=== PATIENT | female | born 1985 | race Caucasian/White ===

== ENCOUNTER 2017-07-10 19:58 | Emergency (ER) | payer OTHER, MEDICAID ==
[~2017-07-10] VITALS: Ht 160 cm; Wt 60.0 kg
[~2017-07-10 19:58] MED LIST: BENZ100 PO; FLON0.053; ZITH250T PO
[2017-07-10 20:00] VITALS: BP 144/83; PULSE 83; RESP 16; TEMP 98.1; O2SAT 99
--- NOTE | 2017-07-10 20:59 | PD ---
HPI Chief Complaint: Chest Pain Time Seen by Provider: 20:55 Travel History International Travel<30 days: No Contact w/Intl Traveler<30days: No Traveled to known affect area: No History of Present Illness HPI 32-year-old female came to the emergency room with history of on and off chest pain that has been going on for years but really started to bother her for the past 3 weeks. Patient says her usual pain is on the right side of the chest but for past 3 weeks it has more to the center and left. No aggravating or relieving factors identified. No radiation of the pain. No associated shortness of breath, syncopal episode, dizziness or diaphoresis. Patient is not a smoker and no family history of heart attack. Vital signs were stable. Patient is also complaining of right lower quadrant pain for which she took Monistat [id number] this morning. No nausea or vomiting. PFSH Past Medical History Narrative Medical List of her past medical, surgical, social and family histories reviewed from the nursing note. Influenza Vaccination: No ?: Not LMP: 06/15/17 Tubal Ligation: Yes Past Surgical History Gynecologic Surgery: Yes (TUBAL) Social History Alcohol Use: Yes ("[employer]") Tobacco Use: No Substance Use: No Allergies-Medications (Allergen,Severity, Reaction): Coded Allergies: No Known Allergies (Verified Adverse Reaction, Unknown, 07/10/17) Comments No known drug allergies. Reported Meds & Prescriptions Reported Meds & Active Scripts Active Macrobid (Nitrofurantoin Monoh/Nitrofur Macro) 100 Mg Cap 100 Mg PO BID 7 Days Zithromax Z-Sj (Azithromycin) 250 Mg Tab 250 Mg PO DIRECTED 5 Days 500 MG (2 TABLETS) PO ON DAY 1, THEN 250 MG (1 TABLET) PO ON DAYS 2 TO 5. Tessalon Perles (Benzonatate) 100 Mg Cap 100 Mg PO Q8 PRN Flonase (Fluticasone Propionate) 0.05 % Naspr 2 Spr NA DAILY PRN 2 SPRAYS EACH NOSTRIL Narrative Medication List of her home medications reviewed from the nursing note Review of Systems Except as stated in HPI: all other systems reviewed are Neg Cardiovascular: Positive: Chest Pain or Discomfort Gastrointestinal: Positive: Abdominal Pain Physical Exam Narrative GENERAL: Awake, alert, anxious, no obvious distress SKIN: Focused skin assessment warm/dry. HEAD: Atraumatic. Normocephalic. EYES: Pupils equal and round. No scleral icterus. No injection or drainage. ENT: No nasal bleeding or discharge. Mucous membranes pink and moist. NECK: Trachea midline. No JVD. CARDIOVASCULAR: Regular rate and rhythm. No murmur appreciated. RESPIRATORY: No accessory muscle use. Clear to auscultation. Breath sounds equal bilaterally. GASTROINTESTINAL: Abdomen soft, non-tender, nondistended. Hepatic and splenic margins not palpable. MUSCULOSKELETAL: No obvious deformities. No clubbing. No cyanosis. No edema. NEUROLOGICAL: Awake and alert. No obvious cranial nerve deficits. Motor grossly within normal limits. Normal speech. PSYCHIATRIC: Appropriate mood and affect; insight and judgment normal. Data Data Last Documented VS Vital Signs Date Time Temp Pulse Resp B/P (MAP) Pulse Ox O2 Delivery O2 Flow Rate FiO2 07/10/17 22:55 07/10/17 22:54 68 14 100 07/10/17 21:41 Room Air 07/10/17 20:00 98.1 Orders Orders Electrocardiogram (07/10/17 21:03) Basic Metabolic Panel (Bmp) (07/10/17 21:03) Ckmb (Isoenzyme) Profile (07/10/17 21:03) Complete Blood Count With Diff (07/10/17 21:03) D-Dimer (07/10/17 21:03) Magnesium (Mg) (07/10/17 21:03) Prothrombin Time / Inr (Pt) (07/10/17 21:03) Troponin I (07/10/17 21:03) Chest, Single Ap (07/10/17 21:03) Ecg Monitoring (07/10/17 21:03) Bilateral Bp Monitoring (07/10/17 21:03) Iv Access Insert/Monitor (07/10/17 21:03) Oximetry (07/10/17 21:03) Oxygen Administration (07/10/17 21:03) Sodium Chloride 0.9% Flush (Ns Flush) (07/10/17 21:15) Urinalysis - C+S If Indicated (07/10/17 21:03) Ed Urine Pregnancytest Poc (07/10/17 21:03) Urine Culture (07/10/17 21:16) Nitrofurantoin Monohyd Macrocr (Macrobid (07/10/17 22:00) CKMB (07/10/17 21:16) CKMB% (07/10/17 21:16) Ed Discharge Order (07/10/17 22:34) Labs Laboratory Tests Test 07/10/17 21:16 White Blood Count 5.9 TH/MM3 Red Blood Count 4.26 MIL/MM3 Hemoglobin 13.3 GM/DL Hematocrit 37.6 % Mean Corpuscular Volume 88.3 FL Mean Corpuscular Hemoglobin 31.2 PG Mean Corpuscular Hemoglobin Concent 35.3 % Red Cell Distribution Width 12.9 % Platelet Count 200 TH/MM3 Mean Platelet Volume 8.0 FL Neutrophils (%) (Auto) 43.7 % Lymphocytes (%) (Auto) 46.2 % Monocytes (%) (Auto) 8.5 % Eosinophils (%) (Auto) 1.0 % Basophils (%) (Auto) 0.6 % Neutrophils # (Auto) 2.6 TH/MM3 Lymphocytes # (Auto) 2.7 TH/MM3 Monocytes # (Auto) 0.5 TH/MM3 Eosinophils # (Auto) 0.1 TH/MM3 Basophils # (Auto) 0.0 TH/MM3 CBC Comment DIFF FINAL Differential Comment Prothrombin Time 10.1 SEC Prothromb Time International Ratio 1.0 RATIO D-Dimer Quantitative (PE/DVT) 0.35 MG/L FEU Urine Color YELLOW Urine Turbidity HAZY Urine pH 7.0 Urine Specific [place] 1.012 Urine Protein NEG mg/dL Urine Glucose (UA) NEG mg/dL Urine Ketones NEG mg/dL Urine Occult Blood NEG Urine Nitrite POS Urine Bilirubin NEG Urine Urobilinogen LESS THAN 2.0 MG/DL Urine Leukocyte Esterase MOD Urine RBC 3 /hpf Urine WBC 11 /hpf Urine Squamous Epithelial Cells 3 /hpf Urine Bacteria MANY /hpf Microscopic Urinalysis Comment CULTURE INDICATED Blood Urea Nitrogen 9 MG/DL Creatinine 1.10 MG/DL Random Glucose 94 MG/DL Calcium Level 9.3 MG/DL Magnesium Level 2.1 MG/DL Sodium Level 139 MEQ/L Potassium Level 3.6 MEQ/L Chloride Level 105 MEQ/L Carbon Dioxide Level 28.7 MEQ/L Anion Gap 5 MEQ/L Estimat Glomerular Filtration Rate 58 ML/MIN Total Creatine Kinase 101 U/L Creatine Kinase MB LESS THAN 0.5 NG/ML Troponin I LESS THAN 0.02 NG/ML MDM Medical Decision Making Medical Screen Exam Complete: Yes Emergency Medical Condition: Yes Medical Record Reviewed: Yes Interpretation(s) Twelve-lead EKG was reviewed by me. Normal sinus rhythm, normal axis, right bundle branch block. Heart rate of 87 bpm per Differential Diagnosis ACS, non-STEMI, PE, atypical chest pain, UTI Narrative Course 10:05 PM awaiting for troponin and d-dimer. Rest of the blood test result is within normal limits. Chest x-ray is negative. UA is suggestive of UTI. I have given her a dose of Macrobid. If the rest of the blood test was also negative patient will be discharged home. Procedures EKG Prior to Arrival: No Diagnosis Primary Impression: Atypical chest pain Additional Impression: UTI (urinary tract infection) Qualified Codes: N39.0 - Urinary tract infection, site not specified Referrals: Primary Care Physician Additional Instructions: Take the medication as per the prescription direction. You can take over-the- counter Tylenol/Motrin/ibuprofen/Advil for the pain as needed. Return to ER if condition worsens or any other new concerns. Otherwise follow-up with your primary care. Med/Other Pt SpecificInfo: Prescription(s) given Scripts Nitrofurantoin Monohydrate Macrocrystals (Macrobid) 100 Mg Cap 100 MG PO BID for Infection for 7 Days, #14 CAP 0 Refills Prov: Serena Mathews MD 07/10/17 Disposition: 01 DISCHARGE HOME Condition: Stable Serena Mathews MD Jul 10, 2017 20:59
[2017-07-10] MEDS ORDERED: SODIUM CHLORIDE 0.9% FLUSH 10 ML FLUSH IVF PRN (21:15)
[2017-07-10 21:39] LABS: AUTOMATED NEUTROPHIL # 2.6 TH/MM3 (1.8-7.7); BASOPHIL % 0.6 % (0.0-2.0); EOSINOPHIL # 0.1 TH/MM3 (0-0.4); HEMATOCRIT 37.6 % (35.0-46.0); HEMOGLOBIN 13.3 GM/DL (11.6-15.3); LYMPH % 46.2 % (9.0-44.0); LYMPHOCYTE # 2.7 TH/MM3 (1.0-4.8); MEAN CELL VOLUME 88.3 FL (80.0-100.0); MEAN CORPUSCULAR HEMOGLOBIN 31.2 PG (27.0-34.0); MEAN CORPUSCULAR HGB CONC 35.3 % (32.0-36.0); MONO % 8.5 % (0.0-8.0); MONOCYTE # 0.5 TH/MM3 (0-0.9); NEUT % 43.7 % (16.0-70.0); PLATELET COUNT 200 TH/MM3 (150-450); RED BLOOD COUNT 4.26 MIL/MM3 (4.00-5.30); RED CELL DISTRIBUTION WIDTH 12.9 % (11.6-17.2); WHITE BLOOD COUNT 5.9 TH/MM3 (4.0-11.0)
[2017-07-10 21:41] VITALS: BP 119/75; PULSE 75; RESP 15; O2SAT 100
[2017-07-10 21:42] LABS: BACTERIA, URINE MANY /hpf; BILIRUBIN, URINE NEG (NEG); BLOOD, URINE NEG (NEG); GLUCOSE,URINE NEG (NEG); KETONE, URINE NEG (NEG); NITRITE,URINE POS (NEG); SQUAMOUS EPITHELIAL CELL URINE 3 /hpf (0-5); URINE COLOR YELLOW (YELLW/STRAW); URINE LEUKOCYTE ESTERASE MOD (NEG)
[2017-07-10 21:53] LABS: BICARBONATE 28.7 MEQ/L (21.0-32.0); BLOOD UREA NITROGEN 9 MG/DL (7-18); CALCIUM 9.3 MG/DL (8.5-10.1); CHLORIDE 105 MEQ/L (98-107); GLOMERULAR FILTRATION RATE 58 ML/MIN (>89); GLUCOSE,RANDOM 94 MG/DL (74-106); MAGNESIUM 2.1 MG/DL (1.5-2.5); SODIUM (NA) 139 MEQ/L (136-145)
--- NOTE | 2017-07-10 21:56 | RADRPT ---
EXAM DATE/TIME: 07/10/2017 21:28 [facility] COMPARISON: No previous studies available for comparison. INDICATIONS : Patient complains of chest pains. Patient states they have had chest pains since a young age but has become more painful and frequent in last two weeks. MEDICAL HISTORY : None. SURGICAL HISTORY : None. ENCOUNTER: Initial ACUITY: 2 weeks PAIN SCORE: 5/10 LOCATION: chest FINDINGS: A single view of the chest demonstrates the lungs to be symmetrically aerated without evidence of mas s, infiltrate or effusion. The cardiomediastinal contours are unremarkable. Osseous structures are intact. CONCLUSION: No acute disease. Abimael Barroso MD on July 10, 2017 at 21:53 Board Certified Radiologist. This report was verified electronically.
[2017-07-10 21:58] LABS: TROPONIN I LESS THAN 0.02 NG/ML (0.02-0.05)
[2017-07-10] MEDS ORDERED: NITROFURANTOIN MONOHYD MACROCR 100 MG CAP PO ONE (22:00)
[2017-07-10 22:30] LABS: PROTHROMBIN TIME - PATIENT 10.1 SEC (9.8-11.6)
[2017-07-10 22:31] LABS: D-DIMER 0.35 MG/L FEU (0.00-0.50)
[2017-07-10] MEDS ORDERED: MACR100C2 PO (22:35)
[2017-07-10 22:54] VITALS: BP 110/69; PULSE 68; RESP 14; O2SAT 100
--- NOTE | 2017-07-11 15:16 | EKG ---
Date Performed: 07/10/2017 Time Performed: 20:42:20 PTAGE: 32 years EKG: Sinus rhythm INCOMPLETE RIGHT BUNDLE BRANCH BLOCK BORDERLINE ECG NO PREVIOUS TRACING DOCTOR: Osman Herrera Interpretating Date/Time 07/11/2017 15:15:22
== END 2017-07-10 22:55 | disposition home or self-care (01) ==
LOC: NEPD 19:58
DX: R07.89 Other chest pain (principal); N39.0 Urinary tract infection, site not specified; B96.20 Unspecified Escherichia coli [E. coli] as the cause of diseases classified elsewhere; I45.10 Unspecified right bundle-branch block; Z79.899 Other long term (current) drug therapy
CPT/HCPCS: 71045; 80048; 81001; 82550; 82552; 83735; 84484; 84703; 85025; 85379; 85610; 87077; 87086; 87186; 93005